=== PATIENT | female | born 1975 | race Caucasian/White ===

== ENCOUNTER 2025-05-09 19:55 | Inpatient (IN) | payer OTHER ==
[2025-05-09 20:12] VITALS: BMI 34.3
[2025-05-09] MEDS ORDERED: MAGNESIUM HYDROX 2400MG/30ML ORAL SUSPENSION 30 ML CUP PO PRN (20:31)
[2025-05-09] MEDS ORDERED: ONDANSETRON *ODT* 4 MG TABLET SL PRN (20:31)
[2025-05-09] MEDS ORDERED: guaiFENesin 600 MG TABLET.ER (FP) PO PRN (20:31)
[2025-05-09] MEDS ORDERED: NALOXONE (NARCAN) HCL 4 MG/0.1 ML SPRAY NS PRN (20:31)
[2025-05-09] MEDS ORDERED: IBUPROFEN 600 MG TABLET (FP) PO PRN (20:31)
[2025-05-09] MEDS ORDERED: POLYETHYLENE GLYCOL (HEALTHYLAX) 3350 17 GM PACKET PO PRN (20:31)
[2025-05-09] MEDS ORDERED: BISMUTH SUBSALICYLATE 524 MG/30 ML PO PRN (20:31)
[2025-05-09] MEDS ORDERED: DICYCLOMINE HCL 10 MG CAPSULE PO PRN (20:31)
[2025-05-09] MEDS ORDERED: LOPERAMIDE HCL 2 MG CAPSULE PO PRN (20:31)
[2025-05-09] MEDS ORDERED: BENZOCAINE/MENTHOL (CHLORASEPTIC ) LOZENGE MM PRN (20:31)
[2025-05-09] MEDS ORDERED: BENZONATATE 200 MG CAPSULE PO PRN (20:31)
[2025-05-09] MEDS ORDERED: IBUPROFEN 400 MG TABLET (FP) PO PRN (20:31)
[2025-05-09] MEDS ORDERED: ACETAMINOPHEN 325 MG TABLET (FP) PO PRN (20:31)
[2025-05-09] MEDS ORDERED: MAG HYDROX/AL HYDROX/SIMETH 30 ML UNIT-DOSE CUP PO PRN (20:31)
[2025-05-09] MEDS: MELATONIN 5 MG TABLETS PO SCH (22:37)
[2025-05-09] MEDS: THIAMINE 100 MG TABLET PO SCH (22:37)
[2025-05-09] MEDS: METHOCARBAMOL 500 MG TABLET PO PRN (22:37)
[2025-05-10] MEDS: hydrOXYzine PAMOATE 25 MG CAPSULE (FP) PO PRN (06:03)
[2025-05-10] MEDS: PRENATAL VITAMINS W/ FOLIC ACID TABLET (FP) PO SCH (10:14)
[2025-05-10] MEDS: LISINOPRIL 10 MG TABLET PO SCH (10:16)
[2025-05-10 12:50] LABS: MCHC 32.3 g/dl (32.2-35.5); MEAN CELL VOLUME 91.8 fl (79.4-94.8); MEAN PLT VOLUME 10.4 fl (9.4-12.3); RDW 15.5 % (12.3-16.6)
[2025-05-10 13:16] LABS: GLUCOSE,RANDOM 100 mg/dL (74-106); TOT PROT 6.5 g/dl (6.4-8.2)
[2025-05-10 13:17] LABS: CO2 27 mmol/L (21-32)
[2025-05-10 13:19] LABS: ALK PHOS 105 U/L (40-150)
[2025-05-10 13:22] LABS: CREATININE 0.58 mg/dL (0.55-1.3); SGOT/AST 48 U/L (5-34); SGPT/ALT 61 U/L (0-55)
[2025-05-10] MEDS: MELATONIN 5 MG TABLETS PO SCH (22:20)
[2025-05-11] MEDS: FLU VACC TS2025-26(6MOS UP)/PF 45 MCG/0.5 ML SYRINGE IM ONE (11:15)
[2025-05-12] MEDS: NALTREXONE HCL 50 MG TABLET PO SCH (11:38)
[2025-05-12] MEDS: CELECOXIB 200 MG CAPSULE PO SCH (12:30)
[2025-05-13 07:28] VITALS: RESP 18
[2025-05-13 10:33] VITALS: BP 135/78; PULSE 89; TEMP 97.7
== END 2025-05-13 11:04 | disposition home or self-care (01) | DRG 775 ==
LOC: YASAS 19:55 → Y6N 20:53
PROVIDERS: ADMIT Neuromusculoskeletal Medicine & OMM; ATTEND Student in an Organized Health Care Education/Training Program
PROC: HZ2ZZZZ Detoxification Services for Substance Abuse Treatment (ICD-10-PCS; principal; 2025-05-09)
DX: F10.230 Alcohol dependence with withdrawal, uncomplicated (principal); F10.282 Alcohol dependence with alcohol-induced sleep disorder; I10 Essential (primary) hypertension; M17.9 Osteoarthritis of knee, unspecified; R74.01 Elevation of levels of liver transaminase levels
CPT/HCPCS: 36415; 71046-TC-FY; 80053; 80307; 85027; 86780; 86803; 90656; 93005; 93010